=== PATIENT | male | born 1945 | race Caucasian/White ===

== ENCOUNTER 2018-11-25 16:44 | Inpatient (IN) | payer MEDICARE, OTHER ==
[~2018-11-25] VITALS: Ht 172.7 cm; Wt 67.6 kg
[2018-11-25 18:36] VITALS: BP 109/68
[2018-11-25] MEDS ORDERED: BISACODYL 10 MG SUPP.RECT PR PRN (19:00)
[2018-11-25 19:35] LABS: BASO % 0 % (0-3); EOS # 0.1 x10^3/uL (0.0-0.7); EOS % 1 % (0-3); LYMPH # 1.2 x10^3/uL (1.0-4.8); LYMPH % 14 % (24-48); MEAN CORPUSCULAR HEMOGLOBIN 30 pg (25-35); MEAN CORPUSCULAR HGB CONC 33 g/dL (31-37); MEAN CORPUSCULAR VOLUME 89 fL (79-100); MONO % 11 % (0-9); NEUT # 6.3 x10^3uL (1.8-7.7); NEUT % 74 % (31-73); PLATELET COUNT 230 x10^3/uL (140-400); RED BLOOD COUNT 3.04 x10^6/uL (4.30-5.70); RED CELL DISTRIBUTION WIDTH 13.9 % (11.5-14.5); WHITE BLOOD COUNT 8.6 x10^3/uL (4.0-11.0)
[2018-11-25 19:48] LABS: ALBUMIN 2.6 g/dL (3.4-5.0); ALBUMIN/GLOBULIN RATIO 0.7 (1.0-1.7); CALCIUM 7.8 mg/dL (8.5-10.1); POTASSIUM 3.3 mmol/L (3.5-5.1); TOTAL BILIRUBIN 0.3 mg/dL (0.2-1.0); TOTAL PROTEIN 6.1 g/dL (6.4-8.2)
[2018-11-25] MEDS ORDERED: traMADol 50 MG TABLET PO PRN (21:00)
[2018-11-25] MEDS ORDERED: ONDANSETRON ODT 4 MG TAB.RAPDIS PO PRN (21:00)
[2018-11-25] MEDS: SERTRALINE 50 MG TABLET. PO SCH ×2 (21:30→22:56)
[2018-11-25] MEDS ORDERED: LIDOCAINE/PRILOCAINE TOPICAL CREAM 5GM TUBE. TP ONE (21:30)
[2018-11-25] MEDS ORDERED: ATORVASTATIN CALCIUM 20 MG TABLET PO SCH (21:30)
[2018-11-25] MEDS ORDERED: LIDOCAINE 2% TOPICAL JELLY 30GM TUBE. TP ONE (21:30)
[2018-11-25] MEDS: DONEPEZIL HCL 10 MG TABLET PO SCH ×2 (21:30→22:57)
[2018-11-25] MEDS ORDERED: INSULIN GLARGINE 300 UNITS/3 ML INSULN.PEN. SQ SCH (21:30)
[2018-11-25] MEDS: AA 3%/ELECTROLYTE-TPN SOLN/GLY 1,000 ML IV SCH (21:35)
[2018-11-25 22:50] VITALS: BP 109/62
--- NOTE | 2018-11-25 22:52 | HP ---
ADMIT DATE: 11/25/2018 HISTORY OF PRESENT ILLNESS: This is a 73-year-old male, who is transferred here [place] for abdominal pain, possible ileus, possible small-bowel obstruction. Not all records are available from the [place] on this patient. Apparently for the last 2 days, he has been having problems with abdominal pain, although he does note he has been passing some gas. The patient in turn has been transferred over with ____ at the [place]. In any case, he is a very complicated patient with multiple medical problems. He has an indwelling Palomares. He has severe lower back problems, multiple compression fractures. He is a type 2 diabetic but actually takes both insulin and oral medications for such. The patient was admitted for abdominal pain and further evaluation as such and again not all records are available from the [place]. PAST MEDICAL HISTORY: As noted above, diabetes, urinary retention, compression fractures of the back, hypercholesterolemia, and coronary artery disease. ALLERGIES: The patient has allergies to diclofenac, tetanus and immunoglobulin. MEDICATIONS: As listed in the reconciliation include Aricept 10 mg at bedtime, Plavix 75, lisinopril 10 mg, tramadol, Zoloft 50, Colace 100 mg daily, Zofran ODT, Protonix 40 mg, Tradjenta 5 mg daily, insulin glargine 11 units daily, Glucotrol 5 mg p.o. b.i.d., and Proscar 5 mg a day. FAMILY HISTORY: Noncontributory. SOCIAL HISTORY: No history of smoking or alcohol or drug use. He has good family support. Lives at home. Goes to the [place] for most of the needs. REVIEW OF SYSTEMS: Outside of some abdominal discomfort, the patient denies any chest pain, shortness of breath. Does have some mild nausea, but none recently. He does note he has been passing some gas. PHYSICAL EXAMINATION: GENERAL: The patient on exam is a pleasant white male, somewhat cachectic, looks very pale. VITAL SIGNS: Blood pressure approximately 110/70, respiratory rate 20, pulse 50. He is afebrile, 96% oxygen saturation. HEENT: The patient's head was atraumatic and normocephalic. Eyes were PERRLA, EOMI. Sclerae are without any icterus. Mouth and throat, basically normal. NECK: Supple. LUNGS: Diminished, but basically clear. CARDIOVASCULAR: Regular sinus rhythm. ABDOMEN: Protuberant, soft in places, but ____ mild guarding, mild tympany, and bowel sounds noted, faint but present. MALE GENITALIA: He has an indwelling Palomares. EXTREMITIES: No clubbing, cyanosis. Trace edema. Pulses noted distally. NEUROLOGIC: Alert. The patient has some mild dementia, but was able to answer some questions. Also, family members like his daughter also contributed to some of the history. [facility] showed [facility]. He has some hernias, but there are no incarcerated loops of bowel in these inguinal hernias. LABORATORY DATA: Otherwise his labs from here show a normal white count of 8.6. He is anemic with H and H of 9 and 27. Chemistries showed slightly low potassium at 3.3. Renal function was normal with a GFR of 73 and he has an albumin of 2.6. Lactic acid was normal. His coags show an elevated D-dimer of 2.65. Other labs are still pending as well are reports on the x-rays, repeated abdominal series while he was here. ____ go ahead and start him on some procalamine and continue to monitor carefully. May need to repeat x-rays in the morning. IMPRESSION AND PLAN: Ileus versus small-bowel obstruction, type 2 diabetes, dementia, appears to be urinary tract infection. We will try him on suppositories, not having any nausea or vomiting at the present time. See how he handles increased fluids, appears to be a bladder infection, although the UA is back. The urine looks very cloudy. I will give him some additional nutrition through his procalamine since he has not been eating very well. SETH ARMSTRONG MD DR: LAURYN/jay JOB#: [id number] / [id number]
[2018-11-25 23:08] LABS: BILIRUBIN,URINE NEG (NEG); CLARITY,URINE CLEAR; COLOR,URINE YELLOW; GLUCOSE,URINE NEG (NEG); NITRITE,URINE POS (NEG); UROBILINOGEN,URINE 0.2 mg/dL (0.2 mg/dL)
[2018-11-25 23:09] LABS: BACTERIA,URINE MOD /HPF (0-FEW); RBC,URINE OCC /HPF (0-2); SQUAMOUS EPITHELIAL CELL,UR FEW /LPF
[2018-11-26 06:23] LABS: CALCIUM 7.7 mg/dL (8.5-10.1); CREATININE 0.8 mg/dL (0.7-1.3); GFR 94.5; POTASSIUM 3.6 mmol/L (3.5-5.1)
[2018-11-26 06:29] VITALS: BP 131/78
[2018-11-26 06:42] LABS: BASO % 0 % (0-3); EOS # 0.1 x10^3/uL (0.0-0.7); EOS % 1 % (0-3); HEMATOCRIT 26.9 % (39.0-53.0); LYMPH % 12 % (24-48); MEAN CORPUSCULAR HEMOGLOBIN 30 pg (25-35); MEAN CORPUSCULAR HGB CONC 33 g/dL (31-37); MEAN CORPUSCULAR VOLUME 89 fL (79-100); MONO # 0.8 x10^3/uL (0.0-1.1); MONO % 10 % (0-9); NEUT # 6.5 x10^3uL (1.8-7.7); NEUT % 77 % (31-73); PLATELET COUNT 206 x10^3/uL (140-400); RED BLOOD COUNT 3.01 x10^6/uL (4.30-5.70); RED CELL DISTRIBUTION WIDTH 14.3 % (11.5-14.5); WHITE BLOOD COUNT 8.5 x10^3/uL (4.0-11.0)
[2018-11-26] MEDS ORDERED: PANTOPRAZOLE 40 MG TABLET. PO SCH (07:30)
[2018-11-26] MEDS ORDERED: glipiZIDE 5 MG TABLET PO SCH (07:30)
[2018-11-26] MEDS ORDERED: IOHEXOL 350 MG/ML 100 ML VIAL. IV ONE (08:00)
[2018-11-26] MEDS ORDERED: FERROUS SULFATE 325 MG TABLET. PO SCH (08:00)
[2018-11-26] MEDS ORDERED: CLOPIDOGREL BISULFATE 75 MG TABLET PO SCH (08:00)
[2018-11-26] MEDS ORDERED: metFORMIN XR 500 MG TAB.ER.24H PO SCH (08:00)
--- NOTE | 2018-11-26 08:10 | RAD ---
Acute abdomen series with chest, 3 views, 11/25/2018: HISTORY: Abdominal pain There is a moderate amount of gas in the GI tract in a nonspecific pattern. Several small air-fluid levels are seen which may reflect a minimal ileus. No free air is present in the abdomen. There is no evidence organomegaly. Scattered vascular calcifications are present. There are moderate degenerative changes in the spine. The heart size is normal. There is minimal bibasilar scarring or atelectasis. IMPRESSION: Mild ileus Electronically signed by: Germain Donis MD (11/26/2018 8:05 AM) [facility]
[2018-11-26] MEDS ORDERED: LINAGLIPTIN 5 MG TABLET PO SCH (09:00)
[2018-11-26] MEDS ORDERED: FINASTERIDE 5 MG TABLET PO SCH (09:00)
[2018-11-26] MEDS ORDERED: LISINOPRIL 10 MG TABLET PO SCH (09:00)
[2018-11-26] MEDS ORDERED: DOCUSATE SODIUM 100 MG CAPSULE PO SCH (09:00)
--- NOTE | 2018-11-26 09:29 | RAD ---
CTA OF THE CHEST WITH AND WITHOUT CONTRAST Clinical indications: Positive d-dimer. Upper abdominal pain. Technique: Noncontrast axial localizer was performed. After IV infusion of 100 cc of Omnipaque 350, helical CT scanning of the chest was performed using the CT pulmonary embolism protocol. A coronal MIP reconstruction was generated. PQRS compliance Statement One or more of the following individualized dose reduction techniques were utilized for this study: 1. Automated exposure control 2. Adjustment of the mA and/or kV according to patient size 3. Use of iterative reconstruction technique Comparison: No previous chest CT available. Findings: No pulmonary embolism is evident. There is ectasia of the ascending aorta which measures up to 4.6 cm in greatest dimension. No intimal flap or dissection is seen. The heart size is normal. No pericardial effusion is seen. There are calcified atheromatous changes of the coronary arteries. No enlarged thoracic lymphadenopathy is evident. There is wall thickening of the esophagus which may be seen with reflux esophagitis. No pleural effusion or pneumothorax is seen. No lung mass or lung consolidation is evident. There is peripheral interstitial lung disease present which may represent interstitial pulmonary fibrosis. This is a lower lung zone predominance. No honeycombing is evident. There is a noncalcified lung nodule of the anterior inferior of the right upper lobe measuring 7 mm in size seen on image 52 and series 4. There is another noncalcified lung nodule measuring 11 mm in size seen on image 15 series 7 and images 41-42 and series 4. There is a calcified granuloma of the superior segment of the left lower lobe. The proximal bronchial tree is patent. There is a mild compression deformity of T3 and there are severe compression deformities of T12 and L1 of indeterminate age. There are Schmorl's nodes of T2 and T5. There is posterior protrusion of bony elements into the anterior aspect of the spinal canal at the L1 level. This severely narrows the AP dimension of the spinal canal down to 4 mm. There is upper pole left renal cyst. No adrenal mass is evident. IMPRESSION: No pulmonary embolism. Multiple compression fractures most severely involving T12 and L1 of indeterminate age. There is posterior protrusion of bony elements into the anterior aspect of the spinal canal at the L1 level which severely narrows the AP dimension of the spinal canal and could compress the conus medullaris. There are 2 noncalcified right lung nodules. Based on size, these may be further evaluated with PET/CT or closely followed with another noncontrast chest CT in 3 months. Interstitial pulmonary fibrosis. Calcified atheromatous disease of the coronary arteries. Wall thickening of the esophagus which may be seen with reflux esophagitis. Fluid or debris is seen within the lumen of the upper thoracic esophagus. Is there a history of dysphagia? Note-this critical result was called to the patient's floor nurse, Jeannine at 9:19 AM on November 26, 2018. Electronically signed by: Bert Bowman MD (11/26/2018 9:25 AM) [facility]
[2018-11-26 11:06] VITALS: BP 127/75
--- NOTE | 2018-11-26 11:41 | DS ---
DATE OF DISCHARGE: HOSPITAL COURSE: The patient was initially evaluated at the Emergency Room of the [facility] where he had presented with abdominal pain, recurrent bouts of nausea, vomiting and the CT scan of the abdomen showed that the patient has left inguinal hernia containing small bowel with short segment dilated small bowel in the left lower abdomen with air fluid level up to 4.2 cm diameter. He has some mild dilated small bowel loops in the left abdomen also with air fluid level. No bowel obstruction or focal inflammation. Given the patient continued to have some abdominal pain and although he has passed gas, he has some tenderness around the left inguinal hernia, decision was made to transfer him to [facility] for surgical consult. The patient will be kept n.p.o., continued with the procalamine and Dulcolax suppository and on transferring him, the patient was hemodynamically stable. PHYSICAL EXAMINATION: VITAL SIGNS: His heart rate was 54, blood pressure 131/78, temperature was 98.6, respiratory rate 22 and oxygen saturation was 94%. The rest of clinical examination is stable. ABDOMEN: He has large left inguinal hernia that is tender to touch, although his bowel sounds seems to be active. LABORATORY DATA: His lab work this morning showed a white cell count of 140, potassium 3.6. His serum sodium was 140, potassium 3.6, chloride 106, bicarbonate 28, anion gap of 6, BUN 25, creatinine was 0.8, estimated GFR was 94 mL per minute. His glucose 101, calcium was 7.7. His white cell count was 8500, hemoglobin 9, hematocrit 26.9, MCV 89 and platelet count ____. FINAL DISCHARGE DIAGNOSES: Small left inguinal hernia with possible small-bowel obstruction. ALEC THORNE MD DR: MARTINA/jay JOB#: [id number] / [id number]
--- NOTE | 2018-11-26 14:15 | PN ---
DATE: 11/26/2018 SUBJECTIVE: The patient is resting, slightly propped up in bed, in no apparent distress. On questioning him, he has no further episodes of nausea and vomiting. does not have any further diarrhea. He did pass gas last night. He denied any abdominal pain. He was originally seen at the [facility] as apparently has had abdominal pain for the last 2 days prior to arrival, although he continued to pass some gas. In his evaluation there, the ER physician recommended that he should go to the [facility] and/or the [facility] in [place] as they do not have any surgeon to take care of his large left inguinal hernia; however, his stated that he was evaluated before by surgeon who did not recommend any surgical intervention and brought him to the Emergency Room of [facility]. He also has severe low back pain problems with multiple compression fractures. He was admitted to [facility] for abdominal pain and further evaluation to see whether he has paralytic ileus versus small-bowel obstruction, type 2 diabetes, dementia. He was started on IV fluid in the form of Procalamine. PHYSICAL EXAMINATION: GENERAL: When I saw him this morning, he was resting slightly propped up in bed, in no apparent distress. He was pale, but no jaundice, cyanosis, or thyromegaly. No jugular venous distension. No lower limb edema. VITAL SIGNS: His heart rate was 54, blood pressure was 131/78, temperature was 98.6, respiratory rate 22 and oxygen saturation was 94% on room air. HEAD, EYES, EARS, NOSE AND THROAT: Showed normocephalic, atraumatic. NECK: Supple. HEART: Showed normal first and second heart sounds with no gallop, rub or murmur. CHEST: Clear to auscultation. No crepitation or rhonchi. ABDOMEN: Slightly distended, soft, nontender. There is no guarding or rigidity. No organomegaly. He has large left-sided inguinal hernia, easily reducible. His bowel sounds are normal. NEUROLOGIC: He is awake, alert, responding appropriately. All his cranial nerves are intact. He moves extremities without difficulty, ambulates with a walker. He has severe kyphoscoliosis with multiple compression fractures. His intake over the last 24 hour was 1350, output was 500. LABORATORY DATA: As of this morning showed a white cell count of 8500, hemoglobin 9, hematocrit 27, MCV 89 and platelet count . His chemistry showed a serum sodium 140, potassium 3.6, chloride 106, bicarbonate 28, anion gap of 6, BUN 25, creatinine was 0.8, estimated GFR was 94 mL per minute. His glucose was 101. Calcium was 7.7. His D-dimer was high at 2.65. Urinalysis showed the urine was yellow, clear with a pH of 7, specific gravity 1.010. The urine was negative for protein, glucose, ketones, trace of blood, positive for nitrite and moderate amount of leukocyte esterase, 11-20 wbc's, moderate amount of bacteria. ASSESSMENT AND PLAN: The patient was started on his medication. Continue with procalamine. He apparently has had CT scan of the abdomen and pelvis with IV contrast, which basically showed that the heart is not enlarged. No pericardial effusion. 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 He has emphysema and subsegmental atelectasis at the lung bases. He has 4 mm nodule in the right middle lobe similar to 07/2017. His liver, spleen, pancreas, adrenal glands and gallbladder are unremarkable. He has 2.3 hypodensity in the left kidney with irregular margins and mild adjacent fat stranding, smaller than 05/2018. It was 3.3 cm, will define further, some peripheral calcification associated with this hypodensity similar to prior exam. He has no hydronephrosis or obstructing renal calculi, bladder collapsed around the Palomares catheter with smaller intraluminal air. The prostate gland not enlarged. He has left inguinal hernia containing small bowel with short segment dilated. Small bowel in the left lower abdomen with air fluid levels up to 4.2 cm diameter, some mildly dilated small bowel loops in left abdomen also with air fluid levels. No bowel obstruction or focal inflammation. Tiny calcification in the appendix with normal size and no adjacent fat stranding, 2.3 cm ectasia of the abdominal aorta measuring the sagittal plane similar to prior exam. He as old left lower rib fracture, severe compression fracture of the lower thoracic and upper lumbar spine with regular kyphosis, angular kyphosis similar to prior exam. Severe spinal canal stenosis at L1, may be increased from prior 2018. Mild compression fracture of L5, similar to prior exam degenerative changes of the smaller lumbar spine. The patient has left inguinal hernia containing small bowel with short segment dilated small bowel in the left lower abdomen with air fluid levels up to 4 cm diameter, suspect early small-bowel obstruction. He has 2.3 cm hypodensity in the left kidney, 4.4 cm aneurysm of the ascending aorta, severe compression fracture, multiple lower thoracic and upper lumbar spine with angular kyphosis. My plan is to discuss the finding with patient and his and perhaps consider transferring him to [facility] for surgical opinion especially that the obstructed bowel is inside the left inguinal hernia. ALEC THORNE MD DR: MARTINA/jay JOB#: [id number] / [id number]
[2018-11-26] MEDS: AA 3%/ELECTROLYTE-TPN SOLN/GLY 1,000 ML IV SCH (14:28)
[2018-11-26 14:56] VITALS: BP 111/70
== END 2018-11-26 15:45 | disposition short-term general hospital (02) | DRG 388 ==
LOC: 1 SOUTH 18:13
PROVIDERS: ADMIT Family Medicine; ATTEND Internal Medicine
DX: K56.699 Other intestinal obstruction unspecified as to partial versus complete obstruction (principal); E43 Unspecified severe protein-calorie malnutrition; N39.0 Urinary tract infection, site not specified; J98.11 Atelectasis; M48.56XA Collapsed vertebra, not elsewhere classified, lumbar region, initial encounter for fracture; E11.9 Type 2 diabetes mellitus without complications; E78.00 Pure hypercholesterolemia, unspecified; F03.90 Unspecified dementia, unspecified severity, without behavioral disturbance, psychotic disturbance, mood disturbance, and anxiety; I25.10 Atherosclerotic heart disease of native coronary artery without angina pectoris; I71.2 Thoracic aortic aneurysm, without rupture; J43.9 Emphysema, unspecified; K40.90 Unilateral inguinal hernia, without obstruction or gangrene, not specified as recurrent; M40.209 Unspecified kyphosis, site unspecified; M48.061 Spinal stenosis, lumbar region without neurogenic claudication
CPT/HCPCS: 36415; 71275; 74022; 80048; 80053; 81001; 82306; 82947; 83036; 83605; 84134; 84145; 84443; 85025; 85379; 87086; 87641; J1815; J3490; Q9967

== ENCOUNTER → 2021-07-04 | Emergency (ER) | payer MEDICARE, OTHER ==
[~2021-07-04] MED LIST: EPINEPHrine SYRINGE 1 MG/10 ML SYRINGE ONE
--- NOTE | 2021-07-04 23:30 | PHYS DOC ---
Adult General Chief Complaint Chief Complaint: CPR/FULL ARREST HPI HPI Patient is a 75-year-old male that presents from home with EMS after cardiac arrest, arriving in asystole while EMS performing ACLS. Per family, about an hour before arriving to the emergency department he was eating, stated that he appeared to choke may be on his food and then collapsed. EMS stated on arrival that he was bradycardic in the 30s but was unable to maintain capture on transcutaneous pacing and began CPR. Patient in asystole until arrival at the hospital approximately 40 minutes after. Physical Exam Physical Exam Constitutional: In acute distress, cardiac arrest HENT: Normocephalic, atraumatic, Eyes: Pupils 6 mm, bilaterally and no response to light, no corneal reflex Neck: Normal range of motion, Cardiovascular: Cardiac arrest Lungs & Thorax: Respiratory arrest Abdomen: No obvious distention, or abnormalities noted Skin: Warm, dry, no erythema, no rash. [] Back: Allergies noted Neurologic: GCS of 3, EKG EKG [] Radiology/Procedures Radiology/Procedures [] Heart Score C/O Chest Pain: N/A Risk Factors: Risk Factors: DM, Current or recent (<one month) smoker, HTN, HLP, family history of CAD, obesity. Risk Scores: Risk Factors: DM, Current or recent (<one month) smoker, HTN, HLP, family history of CAD, obesity. Course & Med Decision Making Course & Med Decision Making Patient is a 75-year-old male who was eating at home, and given story apparently choked and collapsed and went into cardiac arrest. Patient arrived approximately 45 to 50 minutes later in asystole with ACLS in progress. Per EMS they tried intubating twice but was unable to as it appeared he had obstruction and had significant amounts of vomitus. EMS tried a needle cricothyrotomy which failed. Upon arrival patient was taken immediately to room with ACLS in progress. Patient with significant bouts of vomitus in the oropharynx and 2 attempts at orotracheal intubation failed. Cricothyrotomy performed successfully. Despite ability to respirate patient, patient remained in asystole during ACLS on rhythm and pulse checks. Discussed with team in the room differential diagnosis, thoughts on continued treatment and interventions. Given length of time that patient was down, and hypoxic with rhythm continuously asystolic the decision was made at that time to cease resuscitative efforts. [] Monalisa Disclaimer Dragon Disclaimer This electronic medical record was generated, in whole or in part, using a voice recognition dictation system. Departure Departure: Impression: Primary Impression: Cardiac arrest Disposition: 20 Condition: Referrals: SAMIRA VERA APRN (PCP) GABRIELLE POWELL MD Jul 04, 2021 23:30
== END ==
LOC: MERGE 20:19 → ER 20:19 → EDBD 20:19
DX: I46.9 Cardiac arrest, cause unspecified (principal)
CPT/HCPCS: 31605; 92950; 99285; J0171